=== PATIENT | male | born 1960 | race Caucasian/White ===

== ENCOUNTER 2022-01-10 07:26 | Day surgery (SDC) | payer BC ==
[~2022-01-10 07:26] MED LIST: Acetaminophen 325 MG Tab PO SCH; Lactated Ringers 1,000 ML IV SCH; Lidocaine 1%/Sod Bicarbonate in NS 8.4% 1 ML Syringe IDERM PRN; Morphine 8 MG, EPINEPHrine 0.3 MG, Cefuroxime 750 MG, Ketorolac 30 MG, Sodium Chloride ... PRN; Pregabalin 25 MG Cap PO SCH; Sodium Chloride 0.9% 10 ML Syringe FLUSH PRN; Sodium Chloride 0.9% 10 ML Syringe FLUSH SCH; Vancomycin 1 GM SDV ONE; oxyCODONE ER 10 MG TAB.ER PO SCH
[2022-01-10] MEDS ORDERED: Lidocaine 1% 4 ML ONE (07:29)
[2022-01-10] MEDS ORDERED: Propofol 200 MG/20 ML SDV ONE ×3 (07:29→09:28)
[2022-01-10] MEDS ORDERED: ceFAZolin 1 GM Vial ONE (07:29)
[2022-01-10] MEDS ORDERED: Midazolam 1 MG/ML 2 ML SDV ONE (07:30)
[2022-01-10] MEDS ORDERED: fentaNYL 100 MCG/2 ML SDV ONE (07:30)
[2022-01-10] MEDS ORDERED: Pregabalin 25 MG Cap PO SCH (07:30)
[2022-01-10] MEDS ORDERED: oxyCODONE ER 10 MG TAB.ER PO SCH (07:30)
[2022-01-10] MEDS ORDERED: Dexmedetomidine 200 MCG/2 ML SDV ONE (07:38)
[2022-01-10] MEDS ORDERED: Dexamethasone 4 MG/ML 5 ML MDV ONE (07:38)
[2022-01-10] MEDS ORDERED: Vancomycin 1 GM SDV ONE (07:40)
[2022-01-10] MEDS ORDERED: Ropivacaine 0.5% 5 MG/ML 30 ML SDV ONE (07:40)
[2022-01-10] MEDS ORDERED: Lactated Ringers 1,000 ML ONE (08:44)
[2022-01-10] MEDS ORDERED: fentaNYL 100 MCG/2 ML SDV IVPUSH PRN (08:55)
[2022-01-10] MEDS ORDERED: Ondansetron 4 MG/2 ML SDV IVPUSH PRN (08:55)
[2022-01-10] MEDS ORDERED: oxyCODONE 5 MG Tab PO ONE (13:57)
== END 2022-01-10 14:45 | disposition home or self-care (01) ==
LOC: JD.SDS 07:26
PROVIDERS: ATTEND Orthopaedic Surgery
DX: M17.12 Unilateral primary osteoarthritis, left knee (principal); E03.9 Hypothyroidism, unspecified; Z79.899 Other long term (current) drug therapy; Z88.5 Allergy status to narcotic agent; Z90.49 Acquired absence of other specified parts of digestive tract; Z98.890 Other specified postprocedural states
CPT/HCPCS: 27447; 73560; 97110; 97116; 97161; A9270; C1713; C1776; J0171; J0690; J0697; J1100; J1885; J2250; J2270; J2704; J2795; J3010; J3370; J7120; 01392; 64450; 76942